=== PATIENT | male | born 1995 | race Caucasian/White ===

== ENCOUNTER 2018-05-14 16:18 | Emergency (ER) | payer OTHER ==
--- NOTE | 2018-05-14 16:22 | EDPHY ---
HPI/HX/ROS/PE/MDM Narrative: CHIEF COMPLAINT: "Chest dullness" HPI: The patient is a 23 y/o male arriving via EMS complaining of substernal "chest dullness" and tingling down his left arm that began while lying in bed about 1 hour ago. He described progression of these symptoms to "my heart beating really fast" and says symptoms have since subsided somewhat. He cannot identify an obvious precipitating event like heavy lifting, trauma, or recent illness. Symptoms are not exacerbated by exertion. He does note he's had some abdominal pain recently and was evaluated by a "hernia doctor" for this. He is normally healthy and denies recent drugs or alcohol use. No family history of cardiac disease. REVIEW OF SYSTEMS: Aside from elements discussed in the HPI, a comprehensive 10-point review of systems was reviewed and is negative. PMH: Denies SOCIAL HISTORY: Works in [employer]. Lives in [place]. PHYSICAL EXAM: General:Patient is alert, in no acute distress. ENT:Eyes are normal to inspection. ENT inspection normal. Neck: Normal inspection. Full range of motion. Respiratory:No respiratory distress. Breath sounds normal bilaterally. Cardiovascular: Regular rate and rhythm. Strong peripheral pulses. Normal cap refill. Abdomen:The abdomen is nontender to palpation. There are no peritoneal signs. Back: Normal to inspection. No tenderness to palpation. Skin: Normal color. No rash. Warm and dry. Extremities: Normal appearance. Full range of motion. Neuro: Oriented x3. Normal motor function. Normal sensory function. ED Course: This is a healthy 23 y/o male with no known cardiac risk factors who presents with a 1-hour history of chest "dullness" and left arm tingling that has improved since onset. Exam is unremarkable. Low suspicion for cardiac etiology. Plan for IV, labs, EKG, chest x-ray. The 12 lead EKG was interpreted by myself. Sinus mechanism rate 95. See hard copy and/or "tracemaster" electronic copy for interpretation. Chest x-ray: negative Labs including troponin are normal. Reassessed patient. Work up here is negative. He will be discharged home with standard chest pain care and follow up instructions. Return precautions discussed. He is comfortable with this plan. MDM: I see no evidence of PE, TAD, PNA, ACS or PTx. - Data Points Imaging Results: Imaging Impressions Chest X-Ray 05/14/18 16:25 Impression: Normal chest. Imaging: I viewed and interpreted images myself Laboratory Results: Laboratory Results 05/14/18 16:30 05/14/18 16:30 05/14/18 05/14/18 05/14/18 16:30 16:30 16:30 WBC 7.46 10^3/uL 10^3/uL (3.80-9.50) RBC 5.56 10^6/uL 10^6/uL (4.40-6.38) Hgb 17.2 g/dL g/dL (13.7-17.5) Hct 50.3 % % (40.0-51.0) MCV 90.5 fL fL (81.5-99.8) MCH 30.9 pg pg (27.9-34.1) MCHC 34.2 g/dL g/dL (32.4-36.7) RDW 11.9 % % (11.5-15.2) Plt Count 209 10^3/uL 10^3/uL (150-400) MPV 10.6 fL fL (8.7-11.7) Neut % (Auto) 60.2 % % (39.3-74.2) Lymph % (Auto) 31.2 % % (15.0-45.0) [place] % (Auto) 6.3 % % (4.5-13.0) Eos % (Auto) 1.6 % % (0.6-7.6) Baso % (Auto) 0.4 % % (0.3-1.7) Nucleat RBC Rel Count 0.0 % % (0.0-0.2) Absolute Neuts (auto) 4.49 10^3/uL 10^3/uL (1.70-6.50) Absolute Lymphs (auto) 2.33 10^3/uL 10^3/uL (1.00-3.00) Absolute Monos (auto) 0.47 10^3/uL 10^3/uL (0.30-0.80) Absolute Eos (auto) 0.12 10^3/uL 10^3/uL (0.03-0.40) Absolute Basos (auto) 0.03 10^3/uL 10^3/uL (0.02-0.10) Absolute Nucleated RBC 0.00 10^3/uL 10^3/uL (0-0.01) Immature Gran % 0.3 % % (0.0-1.1) Immature Gran # 0.02 10^3/uL 10^3/uL (0.00-0.10) Sodium 143 mEq/L mEq/L (135-145) Potassium 3.7 mEq/L mEq/L (3.3-5.0) Chloride 103 mEq/L mEq/L (97-110) Carbon Dioxide 24 mEq/l mEq/l (22-31) Anion Gap 16 mEq/L mEq/L (8-16) BUN 17 mg/dL mg/dL (7-23) Creatinine 1.1 mg/dL mg/dL (0.7-1.3) Estimated GFR > 60 Glucose 107 mg/dL H mg/dL (70-100) Calcium 9.5 mg/dL mg/dL (8.5-10.4) POC Troponin I 0.01 ng/mL ng/mL (0.00-0.08) Point of Care Test Results: Chemistry 05/14/18 16:30 POC Troponin I 0.01 ng/mL ng/mL (0.00-0.08) General Time Seen by Provider: 05/14/18 16:20 Initial Vital Signs: Initial Vital Signs Temperature (C) 37 C 05/14/18 16:18 Heart Rate 99 05/14/18 16:18 Respiratory Rate 16 05/14/18 16:18 Blood Pressure 142/86 H 05/14/18 16:18 O2 Sat (%) 96 05/14/18 16:18 O2 Delivery Mode Room Air Allergies/Adverse Reactions: No Known Allergies Allergy (Unverified 07/14/16 00:05) Home Medications: Medication Instructions Recorded NK [No Known Home Meds] 07/14/16 Departure - Departure Disposition: Home, Routine, Self-Care Clinical Impression: Chest pain Condition: Good Instructions: Chest Pain (ED) Additional Instructions: Follow up with power technician next week. Return to the ED for worsening of condition. Referrals: Jean-Pierre Cabezas MD [Medical Doctor] - As per Instructions Report Scribed for: Rene Britton Report Scribed by: Jayashree Casper Date of Report: 05/14/18 Time of Report: 16:22 Physician Review and Approval Statement: Portions of this note were transcribed by an ED scribe. I personally performed the history, physical exam, and medical decision making; and confirm the accuracy of the information in the transcribed note.
--- NOTE | 2018-05-14 16:28 | CPEKG ---
Heart Rate: 95 RR Interval: 632 P-R Interval: 168 QRSD Interval: 96 QT Interval: 336 QTC Interval: 423 P Goodwin: 59 QRS Goodwin: 32 T Wave Goodwin: 44 EKG Severity - NORMAL ECG - EKG Impression: SINUS RHYTHM Electronically Signed By: Devorah Hawknis 15-May-2018 15:33:58
[2018-05-14 16:40] LABS: PLATELET COUNT 209 10^3/uL (150-400)
[2018-05-14 17:48] VITALS: BP 126/71
== END 2018-05-14 17:48 | disposition home or self-care (01) ==
LOC: EDUNIT#
DX: R07.9 Chest pain, unspecified (principal)
CPT/HCPCS: 84484-PO

== ENCOUNTER → 2018-08-13 | Outpatient (CLI) | payer OTHER ==
--- NOTE | 2018-08-16 11:51 | CPEEG ---
DATE OF STUDY: 08/13/2018 INTERPRETATION: Normal EEG during wakefulness and brief drowsiness. There were no potentially epile ptogenic abnormalities present during the recording. REPORT: This EEG contains 10 Hz alpha activity to the posterior head regions. There was no abnormal activation at rest, during filling with photic stimulation or hyperventilation. The patient briefly became drowsy during the study. There was no abnormal activation at rest or with photic stimulation or hyperventilation. The patient briefly became drowsiness during the study. There was no abnormal activation during brief drowsiness or during times of arousal. /[id number]/MODL
== END ==
LOC: FCPNEURO 10:21
PROVIDERS: ATTEND Physician Assistant Medical
DX: G43.109 Migraine with aura, not intractable, without status migrainosus (principal); R41.89 Other symptoms and signs involving cognitive functions and awareness

== ENCOUNTER → 2018-08-17 | Outpatient (CLI) | payer OTHER | LOC: FIMAGING 19:10 | PROVIDERS: ATTEND Physician Assistant Medical | DX: G43.109 Migraine with aura, not intractable, without status migrainosus (principal); R41.89 Other symptoms and signs involving cognitive functions and awareness; R51 Headache ==

== ENCOUNTER → 2018-08-26 | Outpatient (CLI) | payer OTHER ==
[~2018-08-26] MED LIST: IOPAMIDOL (ISOVUE-300) 100 ML BTL ONE
== END ==
LOC: FIMAGING 10:22
PROVIDERS: ATTEND Family Medicine
DX: R10.32 Left lower quadrant pain (principal); N32.9 Bladder disorder, unspecified
CPT/HCPCS: Q9967